=== PATIENT | female | born 1960 | race African-American/Black ===

== ENCOUNTER → 2017-10-18 | Outpatient (CLI) | payer OTHER | LOC: NUC 10:12 | DX: Z12.31 Encounter for screening mammogram for malignant neoplasm of breast (principal); M25.562 Pain in left knee; M25.561 Pain in right knee; G89.29 Other chronic pain; Z78.0 Asymptomatic menopausal state ==

== ENCOUNTER → 2021-05-25 | Outpatient (CLI) | payer OTHER | LOC: BC 10:02 | DX: Z12.31 Encounter for screening mammogram for malignant neoplasm of breast (principal) ==